=== PATIENT | female | born 1985 | race Asian ===

== ENCOUNTER 2019-04-06 02:05 | Emergency (ER) | payer OTHER ==
[~2019-04-06] VITALS: Ht 165.1 cm; Wt 93.2 kg
[2019-04-06 03:35] VITALS: BP 119/75
[2019-04-06] MEDS ORDERED: KETOROLAC TROMETHAMINE 60 MG/2 ML VIAL IM ONE (03:45)
== END 2019-04-06 04:15 | disposition home or self-care (01) ==
LOC: EMS 02:08
DX: S93.402A Sprain of unspecified ligament of left ankle, initial encounter (principal); X50.1XXA Overexertion from prolonged static or awkward postures, initial encounter; Y93.89 Activity, other specified; Y92.89 Other specified places as the place of occurrence of the external cause; Y99.8 Other external cause status
CPT/HCPCS: 73610; 81025; 96372; 99283; J1885

== ENCOUNTER 2021-02-18 06:59 | Emergency (ER) | payer OTHER ==
[~2021-02-18] VITALS: Ht 165.1 cm; Wt 100.0 kg
[2021-02-18] MEDS ORDERED: IBUPROFEN 600 MG TABLET PO ONE (07:45)
[2021-02-18 08:50] VITALS: BP 125/78
== END 2021-02-18 08:51 | disposition home or self-care (01) ==
LOC: EMS 06:59
DX: S39.012A Strain of muscle, fascia and tendon of lower back, initial encounter (principal); V49.9XXA Car occupant (driver) (passenger) injured in unspecified traffic accident, initial encounter; Y93.89 Activity, other specified; Y92.488 Other paved roadways as the place of occurrence of the external cause; Y99.8 Other external cause status
CPT/HCPCS: 99283

== ENCOUNTER 2024-06-22 10:43 | Emergency (ER) | payer OTHER ==
[~2024-06-22] VITALS: Ht 162.6 cm; Wt 69.5 kg
[2024-06-22 10:47] VITALS: BP 119/74; PULSE 83; RESP 16; TEMP 98.5; O2SAT 98
[2024-06-22] MEDS ORDERED: CYAN-119 PO (10:47)
[2024-06-22] MEDS ORDERED: DOXY50 PO (11:27)
[2024-06-22] MEDS: ACETAMINOPHEN 500 MG TABLET PO ONE (11:37)
[2024-06-22] MEDS: DOXYCYCLINE HYCLATE 100 MG TABLET PO ONE (11:37)
== END 2024-06-22 11:39 | disposition home or self-care (01) ==
LOC: EMS 10:43
DX: L02.414 Cutaneous abscess of left upper limb (principal); R51.9 Headache, unspecified; Z98.890 Other specified postprocedural states
CPT/HCPCS: 99283